=== PATIENT | female | born 1970 | race Hispanic/Latino ===

== ENCOUNTER 2024-04-14 15:08 | Emergency (ER) | payer OTHER ==
[~2024-04-14] VITALS: Ht 157.5 cm; Wt 86.2 kg
[2024-04-14 16:00] VITALS: PULSE 60; RESP 16; TEMP 98.6; O2SAT 100
== END 2024-04-14 17:30 | disposition home or self-care (01) ==
LOC: ER 16:44
DX: R05.9 Cough, unspecified (principal); U07.1 COVID-19
CPT/HCPCS: 87400; 99283; U0002